=== PATIENT | male | born 1970 | race Caucasian/White ===

== ENCOUNTER 2019-08-06 06:56 | Emergency (ER) | payer OTHER, MEDICAID ==
[~2019-08-06] VITALS: Ht 175.3 cm; Wt 68.0 kg
[2019-08-06 07:00] VITALS: Ht 175.3 cm; Wt 68.0 kg
[2019-08-06 07:44] LABS: BASOPHIL % 0.9 % (0-2); PLATELET COUNT 323 x10^3mcL (130-400)
[2019-08-06 07:45] LABS: CALCIUM 8.4 mg/dL (8.5-10.1); CARBON DIOXIDE 31.5 mmol/L (21-32); CHLORIDE SERUM 107 mmol/L (98-107); CREATININE SERUM 0.6 mg/dL (0.7-1.3); GFR1 > 60 mL/min; GLUCOSE SERUM 86 mg/dL (74-106); POTASSIUM SERUM 4.4 mmol/L (3.5-5.1); SODIUM SERUM 141 mmol/L (136-145)
[2019-08-06 07:49] LABS: ALKALINE PHOSPHATASE 103 U/L (46-116); ALT/SGPT 49 U/L (16-63); AST/SGOT 55 U/L (15-37); BILIRUBIN TOTAL 0.15 mg/dL (0.20-1.00)
[2019-08-06 07:51] LABS: ALBUMIN 2.7 g/dL (3.4-5.0); TOTAL PROTEIN, SERUM 5.6 g/dL (6.4-8.2)
[2019-08-06 09:08] LABS: AMPHETAMINE QUAL UR POSITIVE (See below)
[2019-08-06 09:39] VITALS: BP 120/75
== END 2019-08-06 09:39 | disposition other institution (70) ==
LOC: ED 06:56
PROVIDERS: Emergency Medicine
DX: S01.01XA Laceration without foreign body of scalp, initial encounter (principal); F15.10 Other stimulant abuse, uncomplicated; X58.XXXA Exposure to other specified factors, initial encounter; Y93.89 Activity, other specified; Y92.411 Interstate highway as the place of occurrence of the external cause; Y99.8 Other external cause status
CPT/HCPCS: 90715; G0480; J2060; Q0092

== ENCOUNTER 2019-08-06 06:56 | Emergency (ER) | payer OTHER | END 2019-08-06 09:39 | disposition other institution (70) | LOC: ED 06:56 | DX: Z02.89 Encounter for other administrative examinations (principal) ==